=== PATIENT | female | born 1985 | race African-American/Black ===

== ENCOUNTER 2023-06-17 00:44 | Emergency (ER) | payer MEDICARE, SELFPAY ==
[2023-06-17 01:01] VITALS: BP 119/79
--- NOTE | 2023-06-17 01:13 | ED.GENMED ---
History of Present Illness
General
Chief Complaint: Crisis Evaluation
Time Seen by Provider: 06/17/23 01:13
Travel History
Have you had any contact with someone who has COVID-19?: No
Do you have any symptoms of coronavirus? Fever > 100 degrees, chills, cough, shortness of breath, sore throat, loss of taste or smell, muscle aches, or headache?: No
History of Present Illness
History of Present Illness:
HPI: I spoke to the ER nurse as patient was initially brought in by police. She was found wandering at the intersection of [facility] [address]. She tells me that she is from [place]. She does not know why she is here. She is currently a
very limited historian.
EXAM:
GENERAL: The patient appears somewhat withdrawn
HEENT: Moist oral mucosa
CARDIOVASCULAR: No murmurs, normal heart rate and rhythm, No chest wall tenderness
PULMONARY: No respiratory distress, breath sounds are clear and equal
ABDOMEN: Soft with no peritoneal signs, no tenderness
NEUROLOGIC: Excellent strength all extremities, no coordination deficits
PSYCHIATRIC: The patient has limited insight and judgment but is currently cooperative, she is a limited and unreliable historian
EXTREMITIES: Nontender, no edema, moves all extremities equally
SKIN: No rash, no lesions
ED COURSE:
1:20 AM: I initially evaluated patient
NUMBER AND COMPLEXITY OF PROBLEMS ADDRESSED AT THE ENCOUNTER
� Chronic conditions affecting care: Denies any significant past medical history
� Acute Exacerbation and/or Progression of Chronic Illness: This is an acute problem
� Differential Diagnosis includes: Psychiatric illness, hypoglycemia, electrolyte abnormality, anemia
AMOUNT AND/OR COMPLEXITY OF DATA TO BE REVIEWED AND ANALYZED
� I performed an independent evaluation of and my interpretation is:
EKG:
CT:
X-rays:
Laboratory Studies: Urinalysis was obtained but I suspect this is a contaminated specimen and doubt true urinary tract infection, UDS is positive for benzos and cocaine, alcohol was not detected, other than anemia, CBC and
chemistries
Other:
� Review of other/old records: I look for old records but there were no old records available for review in [facility]
� Clinical information was obtained by an independent historian: I spoke to the nurse who spoke to police for history
� Prescriptions/Medications Considered but not given:
� Further testing considered but not performed:
RISK OF COMPLICATIONS AND/OR MORBIDITY OR MORTALITY OF PATIENT MANAGEMENT
� Social determinants of health affecting care: We suspect she is homeless but states she is from [place]
� Discussion with other providers: I spoke to [facility] who tells me that the patient gave 3 different addresses in [place]
� Escalation of care including admission/observation vs risk of discharge considered: The patient was seen initially in crisis room 1. I feel the patient was medically cleared and she was dispositioned back to crisis.
Phy Exam
Physical Exam
Physical Exam:
See HPI
Course
Orders/Labs/Results
Orders:
Orders
06/17/23 01:26
Add On- LAB Urgent
Tests Added?: tsh reflex t4
Test Result ONCE
06/17/23 01:50
Acetaminophen Urgent
Alcohol Urgent
Complete Blood Count/With Diff Urgent
Comprehensive Metabolic Panel Urgent
Fentanyl, Urine Urgent
HCG, Serum Qualitative Screen Urgent
Salicylate Urgent
TSH Reflex To Free T4 Urgent
Urinalysis Reflex To Culture Urgent
Date Specimen was Collected: 06/17/23
Time Specimen was Collected: 01:17
Urine Drug Abuse Screen Urgent
Date Specimen was Collected: 06/17/23
Time Specimen was Collected: 01:17
Urine Microscopic Reflex Cult Urgent
Urine Culture Urgent
ARASH Source: U
Specimen Description:
Date Specimen was Collected: 06/17/23
Time Specimen was Collected: 01:17
Abnormal Lab Results
06/17/23
01:50
RBC 4.11 L 10^6/uL
(4.20-5.40)
Hgb 10.4 L g/dL
(12.0-16.0)
Hct 31.9 L %
(37.0-47.0)
MCV 77.6 L fL
(81.0-99.0)
MCH 25.3 L pg
(27.0-31.0)
MCHC 32.6 L g/dL
(33.0-37.0)
RDW 19.3 H %
(11.5-14.5)
Plt Count 430 H 10^3/uL
(130-400)
Absolute Lymphs (auto) 1.0 L 10^3/uL
(1.2-3.4)
Neutrophils % 78.1 H %
(42.2-75.2)
Lymphocytes % 15.5 L %
(20.5-51.1)
Glucose 100 H mg/dl
(70-99)
Urine Ketones 1+ A
(Negative)
Urine Bilirubin 1+ A
(Negative)
Leukocyte Esterase Rfl Trace A
(Negative)
Urine Bacteria (Reflex) Many A
(Negative)
Salicylates < 1.0 L mg/dl
(2.0-20.0)
Acetaminophen < 10 L ug/ml
(10-30)
U Benzodiazepines Scrn Positive H
(Negative)
Urine Cocaine Screen Positive H
(Negative)
06/17/23 01:50
06/17/23 01:50
Vital Signs
Initial and Last Documented VS:
Initial Vital Signs
Temp Pulse Resp BP Pulse Ox
98.7 F 95 18 119/79 100
06/17/23 01:01 06/17/23 01:01 06/17/23 01:01 06/17/23 01:01 06/17/23 01:01
Last Documented Vital Signs
Temp Pulse Resp BP Pulse Ox
98.7 F 95 18 119/79 100
06/17/23 01:01 06/17/23 01:01 06/17/23 01:01 06/17/23 01:01 06/17/23 01:01
*Critical Care Note
Total Time (30-74mins, 75-104mins- exclusive of procedures): Not Applicable
ED Attending Note
-
Portions of this chart may have been created with voice recognition software.� Occasional wrong word or��sound alike� substitutions may have occurred due to the inherent limitations of voice recognition software.
Discharge Plan
Departure
Patient Disposition: Psych Facility
Date of Disposition: 06/17/23
Time of Disposition: 04:39
Discharge Problem:
Psychosis
Interventions
Interventions:
*Risk Screen - Suicide Last Done: 06/17/23 01:30
*General Assessment Last Done: 06/17/23 01:20
*Neglect/Abuse Screening Last Done: 06/17/23 01:30
ED- Fall Risk Assessment Last Done: 06/17/23 01:30
*ED COVID-19 Vaccine History Last Done: 06/17/23 01:20
*Nursing Disposition Last Done: 06/17/23 05:19
ED-Psychological Assessment Last Done: 06/17/23 01:20
Discharge Date and Time
Discharge Date/Time: 06/17/23 05:21
[2023-06-17 01:56] LABS: % Basophils 0.2 % (0-2); % Eosinophils 0.9 % (0-6); % Immature Granulocytes 0.3 % (0-0.5); % Lymphocytes 15.5 % (20.5-51.1); % Neutrophils 78.1 % (42.2-75.2); Absolute Eosinophils 0.1 10^3/uL (0-0.7); Absolute Monocytes 0.3 10^3/uL (0.1-0.6); Hematocrit 31.9 % (37.0-47.0); Hemoglobin 10.4 g/dL (12.0-16.0); Mean Corp Hgb Conc. 32.6 g/dL (33.0-37.0); Mean Corpuscular Hgb 25.3 pg (27.0-31.0); Mean Corpuscular Volume 77.6 fL (81.0-99.0); Mean Platelet Volume 9.9 fL (7.4-10.4); Nucleated Red Blood Cells % 0 %; Platelet Count 430 10^3/uL (130-400); Red Blood Cell Count 4.11 10^6/uL (4.20-5.40); Red Cell Dist. Width 19.3 % (11.5-14.5); White Blood Cell Count 6.4 10^3/uL (4.8-10.8)
[2023-06-17 01:57] LABS: Urine Albumin Trace (Neg - Trace); Urine Bilirubin 1+ (Negative); Urine Character Clear (Clear); Urine Color Yellow; Urine Glucose Negative (Negative); Urine Ketone 1+ (Negative); Urine Leukocyte Trace (Negative); Urine Nitrite Negative (Negative); Urine Occult Blood Negative (Negative); Urine Specific Gravity 1.025 (<1.030); Urine Urobilinogen 1+ (Neg - 1+)
[2023-06-17 02:06] LABS: HCG, Serum Qualitative Screen Negative
[2023-06-17 02:10] LABS: ALT (SGPT) 14 U/L (0-35); AST (SGOT) 36 U/L (14-36); Acetaminophen < 10 ug/ml (10-30); Albumin 4.1 g/dl (3.5-5.0); Alkaline Phosphatase 80 U/L (38-126); Blood Urea Nitrogen 9 mg/dl (7-17); Calcium 9.3 mg/dl (8.4-10.2); Carbon Dioxide 25 mmol/L (22-30); Chloride 105 mmol/L (98-107); Glucose 100 mg/dl (70-99); Potassium 3.9 mmol/L (3.5-5.1); Salicylate < 1.0 mg/dl (2.0-20.0); Sodium 136 mmol/L (135-145); Total Bilirubin 0.4 mg/dl (0.2-1.3); eGFR > 60.00
[2023-06-17 02:13] LABS: Alcohol None Detected; Amphetamines Negative (Negative); Barbiturates Negative (Negative); Benzodiazepines Positive (Negative); Buprenorphine Negative (Negative); Cocaine Positive (Negative); Marijuana Negative (Negative); Methadone Negative (Negative); Methamphetamines Negative (Negative); Opiates Negative (Negative); Phencyclidine Negative (Negative); Tricyclic Antidepressants Negative (Negative)
[2023-06-17 02:20] LABS: Fentanyl, Urine Negative (Negative)
[2023-06-17 02:23] LABS: Urine Mucus Many
[2023-06-17 02:24] LABS: Urine Amorphous Seen; Urine Bacteria Many (Negative); Urine Squamous Cell >30 /LPF (Few)
[2023-06-17 02:25] LABS: Urine Red Blood Cell 0-2 /HPF (0-2)
[2023-06-17 02:40] LABS: TSH Reflex To Free T4 1.93 uIU/ml (0.47-4.68)
== END 2023-06-17 05:21 ==
LOC: EMR 00:44
PROVIDERS: Emergency Medicine; EMERGENCY PHYSICIAN Emergency Medicine; FAMILY PHYSICIAN Internal Medicine
DX: F29 Unspecified psychosis not due to a substance or known physiological condition (principal); D64.9 Anemia, unspecified; F10.90 Alcohol use, unspecified, uncomplicated; F14.90 Cocaine use, unspecified, uncomplicated; F19.90 Other psychoactive substance use, unspecified, uncomplicated
CPT/HCPCS: 99283; 80053; 80143; 80179; 80306; 80307; 81003; 81015; 82077; 84443; 84703; 85025; 87086